=== PATIENT | female | born 1940 | race American Indian/Alaskan Native ===

== ENCOUNTER 2018-04-29 14:52 | Outpatient (CLI) | payer MEDICARE ==
--- NOTE | 2018-04-29 15:49 | XRay Report ---
FINAL REPORT EXAM: XR SPINE THORACIC 4+V HISTORY: AP/LAT/FLEX/EXT . Post-laminectomy syndrome. Cord stimulator placement TECHNIQUE: AP, lateral and flexion/extension views of the thoracic spine. PRIORS: None. FINDINGS: A spinal cord stimulator has been placed within the spinal canal posteriorly at T9 and T10. Positioning does not change with flexion or extension. Battery compartment overlies the posterior soft tissues in the lower back. The vertebral body heights are well maintained. However, there is moderate to severe disc space narrowing at T8-T9 and T9-T10. 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 The alignment is normal. Pedicles are intact bilaterally at all levels. The paraspinal soft tissues are unremarkable. Incidental bilateral pedicle screws and stabilizing bars in the lower lumbar spine are present. IMPRESSION: Satisfactory placement of a spinal cord stimulator in the posterior spinal canal at T9 and T10. Multilevel moderate degenerative disc narrowing as mentioned above.
== END 2018-04-29 14:53 | disposition home or self-care (01) ==
LOC: XRAY 14:52
PROVIDERS: ATTEND Internal Medicine Gastroenterology
DX: M47.894 Other spondylosis, thoracic region (principal); I10 Essential (primary) hypertension; Z90.710 Acquired absence of both cervix and uterus; F17.210 Nicotine dependence, cigarettes, uncomplicated
CPT/HCPCS: 72074

== ENCOUNTER 2020-10-05 13:12 | Outpatient (CLI) | payer MEDICARE | END 2020-10-05 13:13 | disposition home or self-care (01) | LOC: SPVWC 13:12 | PROVIDERS: ATTEND Surgery | DX: Z12.31 Encounter for screening mammogram for malignant neoplasm of breast (principal) | CPT/HCPCS: 77067 ==